=== PATIENT | male | born 1990 | race Hispanic/Latino ===

== ENCOUNTER 2023-02-15 19:42 | Emergency (ER) | payer SELFPAY ==
[~2023-02-15] VITALS: Ht 165.1 cm; Wt 65.0 kg
[2023-02-15] MEDS ORDERED: KURIC21 TOP (20:11)
[2023-02-15] MEDS ORDERED: MEDDOSEPAK PO (20:11)
[2023-02-15 20:39] VITALS: BP 123/81
== END 2023-02-15 20:48 | disposition home or self-care (01) | DRG 607 ==
LOC: ED 19:42
DX: B35.6 Tinea cruris (principal)

== ENCOUNTER 2023-02-27 08:04 | Emergency (ER) | payer SELFPAY ==
[~2023-02-27] VITALS: Ht 165.1 cm; Wt 76.0 kg
[2023-02-27] VITALS (10 sets, daily range): BP systolic 118–137; BP diastolic 61–88
[~2023-02-27 08:04] MED LIST: KURIC21 TOP; MEDDOSEPAK PO
[2023-02-27] MEDS ORDERED: DIFLUCAN100 M1 PO (11:30)
== END 2023-02-27 10:30 | disposition home or self-care (01) | DRG 607 ==
LOC: ED 08:04
DX: B35.6 Tinea cruris (principal); F17.200 Nicotine dependence, unspecified, uncomplicated